=== PATIENT | female | born 1995 | race Caucasian/White ===

== ENCOUNTER 2017-04-28 20:04 | Emergency (ER) | payer BC, OTHER ==
[2017-04-28 20:33] LABS: #Basophils 0.1 thou/uL (0.0-0.2); #Eosinphils 0.2 thou/uL (0.0-0.7); #Lymphocytes 1.9 thou/uL (1.20-3.40); #Monocytes 0.5 thou/uL (0.11-0.59); #Neutrophils 4.3 thou/uL (1.40-6.50); %Basophils 0.9 % (0.0-1.0); %Eosinophils 3.2 % (0.0-10.0); %Lymphocytes 27.3 % (28.0-48.0); %Monocytes 6.9 % (0.0-4.0); Hematocrit 38.4 % (36.0-47.0); Mean Platelet Volume 10.3 fL (7.4-10.4); Red Blood Cell (RBC) Count 4.25 mill/uL (4.00-5.20)
[2017-04-28 20:46] LABS: Anion Gap 14 mmol/L (10-20); BUN (Urea Nitrogen) 7 mg/dL (7.0-18.7); Calc. Creatinine Clearance 0 mL/min (70-130); Calcium 9.4 mg/dL (7.8-10.44); Carbon Dioxide 24 mmol/L (22-29); Chloride 106 mmol/L (98-107); Estimated GFR-MDRD Greater than 90
[2017-04-28 20:51] LABS: Bilirubin Negative (Negative); Blood, Urine Large (Negative); Glucose, Urine (Dipstick) Negative (Negative); Ketone, Urine Negative (Negative); Nitrite Negative (Negative); Protein, Urine (Dipstick) Negative (Neg-Trace); Urobilinogen 0.2 mg/dL (0.2-1.0)
[2017-04-28 20:52] LABS: RBC/HPF 21-50 HPF (0-3); WBC/HPF None Seen HPF (0-3)
[2017-04-28 20:53] LABS: Bacteria/HPF 1+ HPF (None Seen)
[2017-04-28] MEDS ORDERED: HYDROcodone/Acetaminophen 5/325 mg Tablet ONE (21:38)
== END 2017-04-28 21:40 | disposition home or self-care (01) ==
LOC: SCSER 20:04
DX: N94.6 Dysmenorrhea, unspecified (principal); E66.9 Obesity, unspecified; Z79.899 Other long term (current) drug therapy
CPT/HCPCS: 80048; 81003; 81015; 84703; 85025; 99284

== ENCOUNTER 2017-09-10 21:00 | Emergency (ER) | payer BC, OTHER ==
[2017-09-10 21:25] LABS: Bilirubin Negative (Negative); Blood, Urine Negative (Negative); Clarity Clear (Clear); Glucose, Urine (Dipstick) Negative (Negative); Leukocyte Negative (Negative); Nitrite Negative (Negative); Pregnancy Test - Urine (BHCG) Negative (Negative); Protein, Urine (Dipstick) Negative (Neg-Trace); Urobilinogen 0.2 mg/dL (0.2-1.0); pH, Urine 6.5 (5.0-9.0)
[2017-09-10 21:26] LABS: Pregu Control Background? CLEAR/WHITE (CLR/WHITE); Pregu Control Bar Appear? YES (CONTROL BAR)
== END 2017-09-10 21:43 | disposition left against medical advice (07) ==
LOC: ERS 21:00
DX: Z53.21 Procedure and treatment not carried out due to patient leaving prior to being seen by health care provider (principal)
CPT/HCPCS: 81003; 81025

== ENCOUNTER 2018-03-19 23:11 | Day surgery (SDC) | payer OTHER ==
[2018-03-19 23:39] VITALS: BP 128/79; TEMP 98.7; BMI 41.0
[2018-03-20] MEDS ORDERED: Morphine 10 MG/ML VIAL ONE (00:17)
[2018-03-20] MEDS ORDERED: diphenhydrAMINE 50 MG/ML VIAL IM SCH (00:30)
[2018-03-20] MEDS ORDERED: Morphine 10 MG/ML VIAL IM SCH (00:30)
--- NOTE | 2018-03-20 08:42 | PRG ---
DATE OF ENCOUNTER: 03/19/2018 CHIEF COMPLAINT: Back pain. PRIMARY OB: Out of town. HISTORY OF PRESENT ILLNESS: The patient is a 22-year-old G1, P0 female with an intrauterine pregnanc y at 25 weeks and 3 days who is presenting to Labor and Delivery with a 2-day history of right lower back pain. The patient reports that this pain is worse with activity and movement, with getting out of bed, it is located in her lower right back. The patient denies fever, fall, headache, chest pain, shortness of breath. She denies nausea, vomiting, diarrhea, constipation. She denies any rashes. She denies vaginal bleeding, leakage of fluid, urinary urgency or frequency. The patient reports dede t she is moving back to the area and is planning on establishing care with Dr. Michael Felix. PAST MEDICAL HISTORY: Negative. PAST SURGICAL HISTORY: Negative. ALLERGIES: PENICILLIN. MEDICATIONS: None. SOCIAL HISTORY: Again, recently moved in the last couple of weeks back to the surrounding area, spec ifically [place]. OB LAB: Unavailable at time of dictation. REVIEW OF SYSTEMS: Per HPI. PHYSICAL EXAMINATION: VITAL SIGNS: Blood pressure 128/79, heart rate of 106, temperature 98.7. GENERAL: She appears to be in no acute distress. She is alert and oriented, cooperative and pleasan t to interact with. HEENT: Head is normocephalic, atraumatic. LUNGS: Clear to auscultation bilaterally. HEART: Regular rate and rhythm. ABDOMEN: Soft. She does have some mild tenderness to deviation of the uterus in her right lower pel melanie region. The patient has no costovertebral angle tenderness. EXTREMITIES: Nontender, nonedematous. GENITOURINARY: Has been deferred. She does have some point tenderness in her right SI joint and upp er gluteal region. heart tracing demonstrates a fetus in the 140s with moderate long-term variability. Tocometer is quiet. No evidence of contractions. ASSESSMENT AND PLAN: The patient is a 22-year-old G1, P0 female with an intrauterine at 25 weeks who is returning to the area with right lower back pain consistent with musculoskeletal pains and some ligamentous pains of . The patient has no evidence of labor or any other concernin g signs or symptoms. The patient has been given a series of stretches that I have helped her through in an effort to give her some longterm benefit. Prior to discharge she was given 10 mg of IM morph ine and 50 mg of IM Benadryl in an effort to give her help her get some rest tonight and to manage he r pain acutely. The patient has been discharged to home. She has been given a prescription of Tylen ol 3 take 1-2 tablets p.o. p.r.n. for pain, #15. The patient has a follow up expected with Dr. Felix once she gets records transferred from her prior OB. Fetus is reassuring for gestational age.
== END 2018-03-20 01:20 | disposition home or self-care (01) ==
LOC: L&D/OP 23:11
PROVIDERS: ATTEND Obstetrics & Gynecology
DX: O99.89 Other specified diseases and conditions complicating pregnancy, childbirth and the puerperium (principal); M54.5 Low back pain; Z3A.25 25 weeks gestation of pregnancy; Z79.899 Other long term (current) drug therapy; Z88.0 Allergy status to penicillin
CPT/HCPCS: 96372; 99282; J1200; J2270

== ENCOUNTER 2018-06-19 14:58 | Inpatient (IN) | payer OTHER ==
[~2018-06-19 14:58] MED LIST: Bupivacaine/Epinephrine 0.25% 30 ML VIAL ONE
[2018-06-19 15:31] VITALS: BMI 43.4
[2018-06-19] MEDS ORDERED: Lactated Ringer's 1,000 ML IV SCH (15:45)
--- NOTE | 2018-06-19 16:11 | PDOC.LDHP ---
Labor and Delivery H&P HPI: Pt is a 23 yof at 38.3 per LMP c/w 11w sono presenting for dizziness. She stood up today and became dizzy, then recorded her BP which was 146/96. She sat back down, rested, and again stood up and dropped to her hands and knees, w/ o hitting her abdomen. She rechecked BP and was reported elevated at 145/95. She then called L&D and was told to come in. She gives a history of FORBES that has continued through and worsened in the past 2 weeks, but not reported as severe. Also admits to mild nausea, more LE swelling, and a brief episode of RUQ pain with inspiration that resolved within a few minutes. She denies LOF, VB , ctx. Pos FM throughout entire day. States she has been drinking a normal amount of water daily. She started her care with Dr Felix, moved to [place] , and then moved back 3w ago and sees Dr Ramsey. Denies any complications during her . Of note, she endorses normal Glucola at 28w and measured at 40w yesterday in clinic. Past Medical History: One spontaneous AB at 5w in 2016 Previous surgical history: none Allergies/Adverse Reactions: Allergies Allergy/AdvReac Type Severity Reaction Status Date / Time Penicillins Allergy Mild Verified 03/19/18 23:32 Social history: none - Physical Exam Abnormal vital signs: BP 143/92 General: NAD Heart: other Lungs: CTAB Abdomen: NTTP Extremeties: trace edema FHT: category 1 - OB Labs Blood type: O RH: positive Antibody Screen: negative HIV: negative RPR: negative HEPSAg: negative 1 hour GCT: unknown GBS: unknown Urine drug screen: not done Rubella: immune Additional Labs: Quad negative - Plan -: 23 yof at 38.3 per LMP c/w 11w sono presenting for dizziness. 1. sIUP: Reactive NST, without any signs of labor. Will order BPP and check BASIM. 2. Gestational HTN: Pending full pre-e workup, but has had elevated pressures > 140/90 today and once recorded in clinic chart 3w ago. Will monitor BPs for several hours and induce if indicated. Otherwise, scheduled for induction 06/24. 3. Recurrent UTIs in : will order UA and treat as needed. 4. Elevated BMI at 43.4: 272 pre-preg weight and now 298. +26lbs Discussed case with Dr Scott Addendum - Attending - Attending Attestation Date/Time: 06/19/182223 I personally evaluated the patient and discussed the management with Dr. Bolden and team. I agree with and repeated the History, Examination, Assessment and Plan documented above with any addition or exceptions noted below. In light of oligo by BASIM criteria and suspected gHTN will keep patient for induction. Discuss r/b/a/i and plan for cervical ripening.
[2018-06-19 16:23] LABS: Hemoglobin 12.4 g/dL (12.0-16.0); Mean Corpuscular HGB CONC 33.2 g/dL (32.0-36.0); Mean Corpuscular Hemoglobin 30.1 pg (27.0-31.0); Mean Corpuscular Volume 90.5 fL (78.0-98.0); Mean Platelet Volume 10.2 fL (7.4-10.4); Platelet Count 241 thou/uL (130-400); RBC Distribution Width 12.6 % (11.5-14.5); Red Blood Cell (RBC) Count 4.14 mill/uL (4.20-5.40); White Blood Cell (WBC) Count 9.6 thou/uL (4.8-10.8)
[2018-06-19 16:42] LABS: ALT (SGPT) 7 U/L (8-55); AST (SGOT) 11 U/L (5-34); Albumin 3.7 g/dL (3.5-5.0); Alkaline Phosphatase 149 U/L (40-150); Anion Gap 13 mmol/L (10-20); BUN (Urea Nitrogen) 7 mg/dL (7.0-18.7); Bilirubin, Total 0.2 mg/dL (0.2-1.2); Calc. Creatinine Clearance 238 mL/min (70-130); Calcium 9.5 mg/dL (7.8-10.44); Carbon Dioxide 24 mmol/L (22-29); Chloride 107 mmol/L (98-107); Estimated GFR-MDRD Greater than 90; Globulin 3.2 g/dL (2.4-3.5); Glucose 85 mg/dL (70-105); Potassium 4.2 mmol/L (3.5-5.1); Protein, Total 6.9 g/dL (6.0-8.3); Sodium 140 mmol/L (136-145)
[2018-06-19 16:43] LABS: Band 3 % (5-11); Lymphocytes 18 % (21-51); MDiff Complete? YES; Monocytes 1 % (0-10); Neutrophil 78 % (42-75); Platelet Morphology Comment Appears Adequate; RBC Morphology Normal
[2018-06-19 16:53] LABS: Bilirubin Negative (Negative); Blood, Urine Negative (Negative); Clarity CLOUDY (Clear); Glucose, Urine (Dipstick) Negative (Negative); Leukocyte Small (Negative); Nitrite Negative (Negative); Protein, Urine (Dipstick) Negative (Neg-Trace); Specific Gravity, Urine 1.016 (1.002-1.036); Urobilinogen 0.2 mg/dL (0.2-1.0)
[2018-06-19 16:56] LABS: Bacteria/HPF 3+ HPF (None Seen); Hyaline Casts/LPF 0-3 HYALINE CAST LPF (0-3 Hyaline); RBC/HPF 0-3 HPF (0-3)
[2018-06-19 16:57] LABS: Urine Culture Reflex No No
[2018-06-19 18:11] LABS: Bilirubin Negative (Negative); Blood, Urine Negative (Negative); Clarity CLEAR (Clear); Glucose, Urine (Dipstick) Negative (Negative); Leukocyte Small (Negative); Nitrite Negative (Negative); Protein, Urine (Dipstick) Negative (Neg-Trace); Specific Gravity, Urine 1.018 (1.002-1.036); Urobilinogen 0.2 mg/dL (0.2-1.0); pH, Urine 6.5 (5.0-9.0)
[2018-06-19 18:13] LABS: RBC/HPF 0-3 HPF (0-3)
[2018-06-19 18:14] LABS: Pathc Cast-AUWi Flag 2.76 (0-2.49)
[2018-06-19 18:29] LABS: Bacteria/HPF 2+ HPF (None Seen); Hyaline Casts/LPF 0-3 HYALINE CAST LPF (0-3 Hyaline); Other Casts/LPF None Seen LPF (0-3 Hyaline)
--- NOTE | 2018-06-19 19:29 | ULT ---
OBSTETRIC SONOGRAM LIMITED SONOGRAPHIC BIOPHYSICAL PROFILE EXAM 06/19/18 HISTORY: Third trimester gestation. FINDINGS: Single intrauterine gestation in cephalic presentation. Four chamber heart shows motion at 144 beats per minute. Amniotic fluid is significantly decreased. Amniotic fluid index 3.8. Good tone and breathing movements and gross movements were demonstrated. IMPRESSION: Sonographic biophysical profile score 6/8. Marked oligohydramnios. Amniotic fluid index 3.8. POS: [facility]
[2018-06-19] MEDS ORDERED: Acetaminophen 500 MG TAB PO PRN (20:11)
[2018-06-19] MEDS ORDERED: Ibuprofen 800 MG TAB PO PRN (20:11)
[2018-06-19] MEDS ORDERED: Lidocaine 1% (PF) 30 ML VIAL SC PRN (20:11)
[2018-06-19] MEDS ORDERED: Promethazine HCl 25 MG/ML VIAL IM PRN (20:11)
[2018-06-19] MEDS ORDERED: Ondansetron PF 4 MG/2 ML Vial IVP PRN (20:11)
[2018-06-19] MEDS ORDERED: Docusate 100 MG CAP PO PRN (20:11)
[2018-06-19] MEDS ORDERED: NS / Oxytocin 40 units/1000ml 1,000 ML IV PRN (20:11)
[2018-06-19] MEDS ORDERED: Butorphanol Tartrate 1 MG/ML VIAL SLOW IVP PRN (20:11)
[2018-06-19] MEDS ORDERED: Misoprostol 100 MCG TAB VAG SCH (20:30)
[2018-06-19] MEDS: Lactated Ringer's 1,000 ML IV SCH (20:30)
[2018-06-19] MEDS: Misoprostol 100 MCG TAB VAG SCH (22:09)
[2018-06-19 22:16] LABS: Hemoglobin 11.3 g/dL (12.0-16.0); Mean Corpuscular HGB CONC 33.6 g/dL (32.0-36.0); Mean Corpuscular Hemoglobin 30.1 pg (27.0-31.0); Mean Corpuscular Volume 89.7 fL (78.0-98.0); Platelet Count 221 thou/uL (130-400); RBC Distribution Width 12.5 % (11.5-14.5); Red Blood Cell (RBC) Count 3.74 mill/uL (4.20-5.40); White Blood Cell (WBC) Count 10.7 thou/uL (4.8-10.8)
--- NOTE | 2018-06-19 22:51 | PDOC.LDPN ---
Labor & Delivery Progress Note - Subjective Subjective: comfortable - Objective Vital signs reviewed and normal: yes General: NAD, resting Uterine fundus: non tender SVE: 20:00 by Josephine Dilation: 2 Effacement: 50% Station: -3 FHT: category 1, variability present [place] contractions every: irregular - Assessment (1) Term Code(s): Z34.80 - ENCOUNTER FOR SUPRVSN OF NORMAL , UNSP TRIMESTER Current Visit: Yes Status: Acute (2) Elevated BP without diagnosis of hypertension Code(s): R03.0 - ELEVATED BLOOD-PRESSURE READING, W/O DIAGNOSIS OF HTN Current Visit: Yes Status: Acute (3) Oligohydramnios Code(s): O41.00X0 - OLIGOHYDRAMNIOS, UNSP TRIMESTER, NOT APPLICABLE OR UNSP Current Visit: Yes Status: Acute (4) Recurrent UTI Code(s): N39.0 - URINARY TRACT INFECTION, SITE NOT SPECIFIED Current Visit: Yes Status: Acute (5) Obesity affecting Code(s): O99.210 - OBESITY COMPLICATING , UNSPECIFIED TRIMESTER Current Visit: Yes Status: Acute -: 23 year old at 38.3 wks 1. sIUP - at 38.3 wks - 2/40/-3 at 20:00 - cat 1 strip 2. Oligohydramnios - <5 cm (3.8 cm) - Plan for induction of labor for marked oligohydramnios - cytotec induction due to unfavorable cervix 3. Elevated BP without diagnosis of HTN - BP >140/90 on admission - suspect gHTN; however, BP 4 hours apart wnl - continue to monitor - pre-e workup negative 4. History of recurrent UTI - pt not on ppx therapy - UA collected x2 today and has small leukocyte esterase and 2-3+ bacteria. Will treat accordingly 5. Elevated BMI: 43.4 - 272 --> 298 Ibs; 26 Ib weight gain Dispo: d/t oligohydramnios and suspected gHTN, will admit to L&D for induction. Will plan for cytotec. Addendum - Attending - Attending Attestation Date/Time: 06/20/18 1040 I personally evaluated the patient and discussed the management with Dr. Lacy and team on 06/19. I agree with the History, Examination, Assessment and Plan documented above with any addition or exceptions noted below.
[2018-06-19 22:54] LABS: Syphilis Antibody Nonreactive (Nonreactive); Syphilis Antibody Index 0.03 S/CO (<1.00 Non-Reactive)
--- NOTE | 2018-06-19 23:11 | PDOC.EVN ---
Event Note - Event Note Event Note: 06/19/2018 at 23:10 Confirmed GBS status with patient; GBS negative. Will not need to initiate antibiotics for GBS prophylaxis. Leesa Lacy, DO PGY-2
[2018-06-19 23:14] LABS: HBSAg Index 0.21 S/CO (0-0.99); Hep B Surf Ag Non-Reactive S/CO (NonReactive)
[2018-06-20] MEDS: Misoprostol 100 MCG TAB VAG SCH ×6 (01:48→18:31)
[2018-06-20] MEDS: Lactated Ringer's 1,000 ML IV SCH ×3 (01:48→15:42)
--- NOTE | 2018-06-20 03:12 | PDOC.LDPN ---
Labor & Delivery Progress Note - Subjective Subjective: comfortable - Objective Vital signs reviewed and normal: yes General: NAD, resting Uterine fundus: non tender SVE: 2:00 by Bambi Dilation: 2 Effacement: 25% Station: -3 FHT: category 1, variability present [place] contractions every: Irregular - Assessment (1) Term Code(s): Z34.80 - ENCOUNTER FOR SUPRVSN OF NORMAL , UNSP TRIMESTER Current Visit: Yes Status: Acute (2) Elevated BP without diagnosis of hypertension Code(s): R03.0 - ELEVATED BLOOD-PRESSURE READING, W/O DIAGNOSIS OF HTN Current Visit: Yes Status: Acute (3) Oligohydramnios Code(s): O41.00X0 - OLIGOHYDRAMNIOS, UNSP TRIMESTER, NOT APPLICABLE OR UNSP Current Visit: Yes Status: Acute (4) Recurrent UTI Code(s): N39.0 - URINARY TRACT INFECTION, SITE NOT SPECIFIED Current Visit: Yes Status: Acute (5) Obesity affecting Code(s): O99.210 - OBESITY COMPLICATING , UNSPECIFIED TRIMESTER Current Visit: Yes Status: Acute Plan: continue plan of care -: 23 year old at 38.3 wks 1. sIUP - at 38.3 wks - 07/20/-3 at 2:00; patient unchanged since 22:00 - cat 1 strip - Consider balloon if patient not making any cervical change with cytotec 2. Oligohydramnios - <5 cm (3.8 cm) - Plan for induction of labor for marked oligohydramnios - cytotec induction due to unfavorable cervix; consider balloon if patient not making change with cytotec 3. Elevated BP without diagnosis of HTN - BP >140/90 on admission - suspect gHTN; however, BP 4 hours apart wnl. No pressures >140/90 since admission - continue to monitor - pre-e workup negative 4. History of recurrent UTI - pt not on ppx therapy - UA collected x2 today and has small leukocyte esterase and 2-3+ bacteria. Will treat accordingly. 5. Elevated BMI: 43.4 - 272 --> 298 Ibs; 26 Ib weight gain Dispo: Continue current plan of care. Consider balloon if no cervical change with cyotec. Addendum - Attending - Attending Attestation Date/Time: 06/20/18 1041 I personally evaluated the patient and discussed the management with Dr. Lacy. I agree with the History, Examination, Assessment and Plan documented above with any addition or exceptions noted below.
--- NOTE | 2018-06-20 05:41 | PDOC.LDPN ---
Labor & Delivery Progress Note - Subjective Subjective: comfortable, painful contractions - Objective Vital signs reviewed and normal: yes General: NAD, resting, breathing through contractions Uterine fundus: non tender SVE: 5:30 AM Dilation: 3 Effacement: 50% Station: -3 FHT: category 1, variability present [place] contractions every: q2-3 min - Assessment (1) Term Code(s): Z34.80 - ENCOUNTER FOR SUPRVSN OF NORMAL , UNSP TRIMESTER Current Visit: Yes Status: Acute (2) Elevated BP without diagnosis of hypertension Code(s): R03.0 - ELEVATED BLOOD-PRESSURE READING, W/O DIAGNOSIS OF HTN Current Visit: Yes Status: Acute (3) Oligohydramnios Code(s): O41.00X0 - OLIGOHYDRAMNIOS, UNSP TRIMESTER, NOT APPLICABLE OR UNSP Current Visit: Yes Status: Acute (4) Recurrent UTI Code(s): N39.0 - URINARY TRACT INFECTION, SITE NOT SPECIFIED Current Visit: Yes Status: Acute (5) Obesity affecting Code(s): O99.210 - OBESITY COMPLICATING , UNSPECIFIED TRIMESTER Current Visit: Yes Status: Acute Plan: continue plan of care -: Patient made change at this last check. 50/-3, mid position. Trevor too frequently for cytotec at this time. Will continue to monitor, and if there is a window for cytotec will place. Otherwise, may consider FSE and IUPC at next check as it has been difficult to pick up man contractions and keep baby on monitor. Addendum - Attending - Attending Attestation Date/Time: 06/20/18 5510 I personally evaluated the patient and discussed the management with Dr. Lacy. I agree with the History, Examination, Assessment and Plan documented above with any addition or exceptions noted below.
[2018-06-20] MEDS: Nitrofurantoin Monohyd/M-Cryst 100 MG CAP PO SCH ×2 (09:24)
[2018-06-20] MEDS ORDERED: Nitrofurantoin Monohyd/M-Cryst 100 MG CAP PO SCH (09:27)
[2018-06-20] MEDS ORDERED: NS w/ Oxytocin 10 units 500 ML ONE (10:50)
[2018-06-20] MEDS ORDERED: NS w/ Oxytocin 10 units 500 ML IV SCH (11:00)
--- NOTE | 2018-06-20 11:06 | PDOC.LDPN ---
Labor & Delivery Progress Note - Subjective Subjective: comfortable - Objective Vital signs reviewed and normal: yes General: NAD, resting Uterine fundus: non tender SVE: @ [address] Jordan Dilation: 50/-3 FHT: category 1 (baseline 125/mod linden/no decels/+accels), variability present [place] contractions every: 3-5 minutes Procedures: FSE placed FSE placed: yes - Assessment (1) Oligohydramnios Code(s): O41.00X0 - OLIGOHYDRAMNIOS, UNSP TRIMESTER, NOT APPLICABLE OR UNSP Current Visit: Yes Status: Acute Qualifiers: Fetus number: single or unspecified fetus Trimester: third trimester Qualified Code(s): O41.03X0 - Oligohydramnios, third trimester, not applicable or unspecified (2) Elevated BP without diagnosis of hypertension Code(s): R03.0 - ELEVATED BLOOD-PRESSURE READING, W/O DIAGNOSIS OF HTN Current Visit: Yes Status: Acute (3) Obesity affecting Code(s): O99.210 - OBESITY COMPLICATING , UNSPECIFIED TRIMESTER Current Visit: Yes Status: Acute Qualifiers: Trimester: third trimester Qualified Code(s): O99.213 - Obesity complicating , third trimester (4) Term Code(s): Z34.80 - ENCOUNTER FOR SUPRVSN OF NORMAL , UNSP TRIMESTER Current Visit: Yes Status: Acute Plan: pitocin for augmentation -: SVE unchanged from prior. FSE placed for slow rupture and better monitoring Will start pt on pitocin at this time and recheck cervix in 2 hours. If able, will place IUPC at that time. Addendum - Attending - Attending Attestation Date/Time: 06/20/18 8035 I personally evaluated the patient and discussed the management with Dr. Jordan. I agree with the History, Examination, Assessment and Plan documented above with any addition or exceptions noted below.
[2018-06-20] MEDS ORDERED: Fentanyl 4 mcg/Bup 0.1% Cadd 100 ML ONE (11:24)
[2018-06-20] MEDS ORDERED: Lidocaine 1.5% w/Epi 1:200K 30 ML VIAL (Epid Use) ONE (12:02)
[2018-06-20] MEDS ORDERED: diphenhydrAMINE 50 MG/ML VIAL IVP PRN (12:47)
[2018-06-20] MEDS ORDERED: ePHEDrine/0.9% NaCl/PF SYRINGE 50 mg/10 ml SLOW IVP PRN (12:47)
[2018-06-20] MEDS ORDERED: Promethazine HCl 25 MG/ML VIAL IM PRN ×2 (12:47→18:21)
[2018-06-20] MEDS ORDERED: Ondansetron PF 4 MG/2 ML Vial IVP PRN ×2 (12:47→18:21)
[2018-06-20] MEDS ORDERED: Acetaminophen 325 MG TAB PO PRN (12:47)
[2018-06-20] MEDS ORDERED: Lactated Ringer's 500 ML IV PRN (12:47)
[2018-06-20] MEDS ORDERED: Naloxone HCl 0.4 mg/ml Vial IVP PRN ×2 (12:47)
[2018-06-20] MEDS ORDERED: Hydrocerin (Eucerin) Cream 120 gm Jar TOP PRN (12:47)
[2018-06-20] MEDS ORDERED: Fentanyl 4 mcg/Bupivacaine 0.1% Cassette 100 ML EPIDURAL SCH (13:00)
--- NOTE | 2018-06-20 13:10 | PDOC.LDPN ---
Labor & Delivery Progress Note - Subjective Subjective: painful contractions - Objective Vital signs reviewed and normal: yes General: breathing through contractions Uterine fundus: palpable contractions SVE: @ [address] Jordan /-2 FHT: category 1, variability present [place] contractions every: 2-4 minutes - Assessment (1) Oligohydramnios Code(s): O41.00X0 - OLIGOHYDRAMNIOS, UNSP TRIMESTER, NOT APPLICABLE OR UNSP Current Visit: Yes Status: Acute Qualifiers: Fetus number: single or unspecified fetus Trimester: third trimester Qualified Code(s): O41.03X0 - Oligohydramnios, third trimester, not applicable or unspecified (2) Elevated BP without diagnosis of hypertension Code(s): R03.0 - ELEVATED BLOOD-PRESSURE READING, W/O DIAGNOSIS OF HTN Current Visit: Yes Status: Acute (3) Obesity affecting Code(s): O99.210 - OBESITY COMPLICATING , UNSPECIFIED TRIMESTER Current Visit: Yes Status: Acute Qualifiers: Trimester: third trimester Qualified Code(s): O99.213 - Obesity complicating , third trimester (4) Term Code(s): Z34.80 - ENCOUNTER FOR SUPRVSN OF NORMAL , UNSP TRIMESTER Current Visit: Yes Status: Acute Plan: continue plan of care -: -Epidural in place -SVE changed to 2. Cont pitocin. If no change at next check, will insert IUPC to monitor strength of ctx. Addendum - Attending - Attending Attestation Date/Time: 06/20/18 1430 I personally evaluated the patient and discussed the management with Dr. Jordan. I agree with the History, Examination, Assessment and Plan documented above with any addition or exceptions noted below. Pt most recently cat 1 with + accels and earlies. I was notified that epidural was a wet tap and patient developed headache subsequently. Nurses also were suspicious of arrhythmia during time in room. During exchange of FSE by RN one decel to the 60's that recovered. I have discussed the case with Dr. Montiel, who is aware and graciously covering for the next ~2 hours and will notify me if any deterioration/problem.
[2018-06-20] MEDS ORDERED: Acetaminophen 500 MG TAB PO SCH (13:15)
--- NOTE | 2018-06-20 17:51 | PDOC.OPDEL ---
OB Operative/Delivery Note Delivery Dr/Surgeon: Dr. Jordan and Dr. Ramsey with Dr. Scott attending Pre-Delivery Diagnosis: medically indicated induction (for oligohydramnios) Procedure/Post Delivery Dx: operative vaginal delivery (vacuum-assisted) Weeks gestation: 38 (38w4d) Anesthesia: epidural - Findings A Sex: male - 1 min: 8 - 5 min: 9 - Additional Findings/Plan Placenta delivered: spontaneous Repaired Obstetrical Laceration: 2nd degree (repaired with 3-0 chromic and periurethral that was hemostatic) Compilations/Other Findings: This is a 23 year old female @ 38.4 wks who delivered a viable M at 1648 on 06/20/18. During the second stage of labor the fetus developed bradycardia, so the decision was made to proceed with a vacuum assisted delivery. The head was at the +3 station and the mushroom cup was applied to the flexion point. There was one pop-off during the first pull and the male infant was delivered during the second contraction over an intact perineum in the SHAMIKA position. Anterior Shoulder and then remainder of the body delivered. The was vigorous. No nuchal cord. The head was held down and mouth and nares were bulb suctioned. Cord clamped and cut and cord blood collected. Placenta delivered intact with a 3 vessel cord noted. Fundal massage was performed and the fundus was firm. The cervix and vagina were inspected and found to have a 2nd degree laceration noted that was repaired with 3-0 chromic in the usual fashion with good approximation and hemostasis. A periurethral laceration was noted that was hemostatic, and this was not repaired. went to nursery in good condition for routine care. Apgars were 8&9 at 1 & 5 minutes, respectively. Patient tolerated delivery well and went to after routine recovery/care. QBL: 35mL Post delivery plan: routine recovery Addendum - Attending - Attending Attestation Date/Time: 06/21/18 9957 I personally evaluated the patient and discussed the management with Dr. Scott. I agree with and repeated the History, Examination, Assessment and Plan documented above with any addition or exceptions noted below. I was present during the entire delivery. Indication: Category 2 FHTs (bradycardia) Popoffs: 1 Time of application: ~1-2 minutes Repaired in the usual fashion
[2018-06-20] MEDS ORDERED: Milk Of Magnesia 30 ML UDCUP PO PRN (18:21)
[2018-06-20] MEDS ORDERED: NS / Oxytocin 40 units/1000ml 1,000 ML IV SCH (18:21)
[2018-06-20] MEDS ORDERED: Bisacodyl 10 MG SUPP PR PRN (18:21)
[2018-06-20] MEDS ORDERED: diphenhydrAMINE 25 MG CAP PO PRN (18:21)
[2018-06-20] MEDS ORDERED: Lanolin Ointment 7 GM TUBE TOP PRN (18:21)
[2018-06-20] MEDS: Cephalexin 250 MG CAP PO SCH (23:20)
[2018-06-20] MEDS: Docusate Calcium (SURFAK) 240 MG CAP PO SCH (23:21)
[2018-06-20] MEDS: Ibuprofen 800 MG TAB PO SCH (23:24)
--- NOTE | 2018-06-21 06:10 | PDOC.PP ---
Post Progress Note Post Day #: 1 Subjective: Mother states that she is doing well. She is having some back pain this AM. Patient is waiting to get her epidural out. She states she was able to get some rest when her baby went to the Nursery. She was very appreciative of the staff. She denies chest pain, sob, n/v/d, fever, or lightheadedness. No other complaints. PO intake tolerated: yes Flatus: yes Ambulation: yes Vital Signs (12 hours) Pulse Ox 06/21/18 00:00 100 Weight Weight 133.356 kg - Physical Examination General: NAD Cardiovascular: no m/r/g, RRR Respiratory: clear to auscultation bilaterally, non-labored breathing Abdominal: + bowel sounds, lochia, no distention, appropriately TTP Extremities: negative homans (B) Skin: no rash Neurological: no gross focal deficits Psychiatric: A&Ox3 Result Diagrams: 06/21/18 07:32 06/19/18 16:08 Additional Labs: Post Labs Blood Type O POSITIVE 06/19/18 22:04 Hep Bs Antigen Non-Reactive S/CO (NonReactive) 06/19/18 22:04 (1) Term delivered Code(s): O80 - ENCOUNTER FOR FULL-TERM UNCOMPLICATED DELIVERY Status: Acute (2) Elevated BP without diagnosis of hypertension Code(s): R03.0 - ELEVATED BLOOD-PRESSURE READING, W/O DIAGNOSIS OF HTN Status : Acute - Assessment/Plan 1. Term delivered - Continue routine supportive care - Breast feeding consultation pending at this time. - Repeat Hemagram pending at this time 2. Elevated BP without HTN - BP well controlled overnight with systolic 116s/60s - Continue to monitor Disposition: Stable, will continue routine plan of care and anticipate discharge tomorrow. Addendum - Attending - Attending Attestation Date/Time: 06/21/18 5358 I personally evaluated the patient and discussed the management with Dr. Ramsey and Yuan. I agree with and repeated the History, Examination, Assessment and Plan documented above with any addition or exceptions noted below. D/w anesthesia concerning epidural. Plan for d/c tomorrow.
[2018-06-21] MEDS: Ibuprofen 800 MG TAB PO SCH ×3 (06:27→21:25)
[2018-06-21 07:45] LABS: Hemoglobin 10.7 g/dL (12.0-16.0); Mean Corpuscular HGB CONC 32.5 g/dL (32.0-36.0); Mean Corpuscular Hemoglobin 29.5 pg (27.0-31.0); Mean Corpuscular Volume 90.8 fL (78.0-98.0); Mean Platelet Volume 9.9 fL (7.4-10.4); Platelet Count 220 thou/uL (130-400); RBC Distribution Width 12.4 % (11.5-14.5); Red Blood Cell (RBC) Count 3.64 mill/uL (4.20-5.40); White Blood Cell (WBC) Count 7.5 thou/uL (4.8-10.8)
[2018-06-21] MEDS ORDERED: Adacel (T-DAP) 0.5 ML SYRINGE IM ONE (09:00)
[2018-06-21] MEDS: Ferrous Sulfate 325 MG TAB PO SCH ×2 (09:16→16:57)
[2018-06-21] MEDS: Prenatal Vitamin 1 TAB PO SCH (09:17)
[2018-06-21] MEDS: Docusate Calcium (SURFAK) 240 MG CAP PO SCH ×2 (09:17→21:25)
[2018-06-21] MEDS: Cephalexin 250 MG CAP PO SCH ×2 (09:18→21:25)
[2018-06-21] MEDS ORDERED: Benzocaine/Menthol 20-0.5% 60 ML CAN TOP PRN (19:48)
[2018-06-21 20:09] VITALS: TEMP 98.1
[2018-06-22] MEDS: Ibuprofen 800 MG TAB PO SCH (05:10)
--- NOTE | 2018-06-22 07:29 | PDOC.PP ---
Post Progress Note Post Day #: 2 Subjective: Patient doing very well. She states she has had no problems. Since having the epidural removed she has not had the back pain. She states that she has not had n/v/d, fevers, chills, or cough. No other complaints. PO intake tolerated: yes Flatus: yes Ambulation: yes Vital Signs (12 hours) Temp Pulse Resp BP Pulse Ox 06/21/18 23:52 104 H 06/21/18 20:00 98.1 F 105 H 18 116/63 98 Weight Weight 133.356 kg - Physical Examination General: NAD Cardiovascular: no m/r/g, RRR Respiratory: clear to auscultation bilaterally, non-labored breathing Abdominal: + bowel sounds, lochia, no distention, appropriately TTP Fundus firm & at: Below umbilicus Extremities: negative homans (B) Skin: no rash Neurological: no gross focal deficits Psychiatric: A&Ox3, normal affect Result Diagrams: 06/21/18 07:32 06/19/18 16:08 Additional Labs: Post Labs Blood Type O POSITIVE 06/19/18 22:04 Hep Bs Antigen Non-Reactive S/CO (NonReactive) 06/19/18 22:04 (1) Term delivered Code(s): O80 - ENCOUNTER FOR FULL-TERM UNCOMPLICATED DELIVERY Status: Acute (2) Elevated BP without diagnosis of hypertension Code(s): R03.0 - ELEVATED BLOOD-PRESSURE READING, W/O DIAGNOSIS OF HTN Status : Acute - Assessment/Plan 1. Term delivered - Continue routine supportive care - consultation pending at this time. - Repeat H&H from 06/21 showed no acute signs of hemorrhage - Plan for discharge today. 2. Elevated BP without HTN - BP well controlled overnight with systolic 116s/60s - Continue to monitor - Recommend outpatient follow up. Disposition: Stable, plan for discharge today after consultation. Patient is given instructions for post follow up. Addendum - Attending - Attending Attestation Date/Time: 06/22/18 2100 I personally evaluated the patient and discussed the management with Dr. Ramsey I agree with the History, Examination, Assessment and Plan documented above with any addition or exceptions noted below. Meeting appropriate milestones. Epidural catheter removed yesterday. pt denies FORBES, vision changes or RUQ pain. BP normotensive. Stable for d/c today
[2018-06-22] MEDS: Ferrous Sulfate 325 MG TAB PO SCH (07:56)
[2018-06-22 08:22] VITALS: BP 132/70
[2018-06-22] MEDS: Prenatal Vitamin 1 TAB PO SCH (09:34)
[2018-06-22] MEDS: Docusate Calcium (SURFAK) 240 MG CAP PO SCH (09:34)
[2018-06-22] MEDS: Cephalexin 250 MG CAP PO SCH (09:34)
== END 2018-06-22 13:15 | disposition home or self-care (01) | DRG 806 ==
LOC: L&D/OP 14:58 → L&D 20:32 → 3SW 06-20 21:45
PROVIDERS: ADMIT Emergency Medicine; ATTEND Emergency Medicine
PROC: 10D07Z6 Extraction of Products of Conception, Vacuum, Via Natural or Artificial Opening (ICD-10-PCS; principal; 2018-06-20)
PROC: 0KQM0ZZ Repair Perineum Muscle, Open Approach (ICD-10-PCS; 2018-06-20)
PROC: 3E033VJ Introduction of Other Hormone into Peripheral Vein, Percutaneous Approach (ICD-10-PCS; 2018-06-20)
PROC: 10907ZC Drainage of Amniotic Fluid, Therapeutic from Products of Conception, Via Natural or Artificial Opening (ICD-10-PCS; 2018-06-20)
DX: O13.4 Gestational [pregnancy-induced] hypertension without significant proteinuria, complicating childbirth (principal); O41.03X0 Oligohydramnios, third trimester, not applicable or unspecified; Z37.0 Single live birth; Z68.41 Body mass index [BMI] 40.0-44.9, adult; Z3A.38 38 weeks gestation of pregnancy; Z87.440 Personal history of urinary (tract) infections; N96 Recurrent pregnancy loss; O70.1 Second degree perineal laceration during delivery; O99.210 Obesity complicating pregnancy, unspecified trimester; E66.9 Obesity, unspecified
CPT/HCPCS: 36415; 36416; 51702; 76819; 80053; 81001; 82570; 84156; 85007; 85027; 86780; 86850; 86900; 86901; 87086; 87340; 99285; J0595; J2001; J2405

== ENCOUNTER 2020-06-12 00:13 | Day surgery (SDC) | payer OTHER ==
[2020-06-12 00:57] VITALS: BMI 43.9
--- NOTE | 2020-06-12 01:22 | PDOC.FPROB ---
FMR OB H&P: HPI - History of Present Illness Chief Complaint: HTN Indentification: 25yo at 24.4wga History of Present Illness: This is a 25yo at 24.4wga presenting after recording a BP of 171/111 at home. At ~2300 on 06/11 she was giving her son some medication when she felt lightheaded, chills, and weak. She took her BP and found it to be 171/111. She drank a bottle of water, laid down, and rechecked it to find a BP of 150/99. She rechecked a few minutes later and it was 132/90. She has had similar episodes a few times in the past and most notably on 05/31/2020, at which point she was evaluated in the hospital and ultimately sent home. On that date and on 06/08/2020 in her PCP's clinic she was worked up for pre-eclampsia but had normal urine protein/cr. In her previous , she also struggled with HTN and was induced at 38wks because of that and low BASIM. She had a vacuum-assisted vaginal delivery with no complications. She was never diagnosed with pre-eclampsia or eclampsia and never given Mg sulfate. She has never had BP issues outside of . She has already been referred to [facility] but has not met with them yet. BP on arrival was 130/72, c/w subsequent check with her home BP cuff. She demonstrated good technique - sitting with feet flat, uncrossed, with arms by her side. She has a hx of migraines outside of , for which she takes butalbital. She was recently started on Mg sulfate to help with these. Earlier in the day she had a FORBES which responded a little to tylenol. She states this FORBES was less severe than the ones she normally gets. She denies dyspnea, CP, RUQ pain, changes in vision, significant edema. Primary Care Physician: [facility] - Drs. Pat Gaines / Samantha Ramirez FMR OB H&P: Current - Care : 5 Para: [id number] Gestational age: 24 Due date: 09/28/2020 Dating Criteria: 1T U/S Course/Complications: gHTN, migraines, morbid obesity (BMI >40) - OB Labs Blood type: O RH: positive Antibody Screen: negative HIV: negative RPR: negative HepBsAg: negative Gonorrhea: negative Chlamydia: negative 1 hour gtt: 2hr GTT neg H&H: FMR OB H&P: History - Past Medical History PMH: Migraines - OB History OB History: 3 spontaneous abortions 1 full-term, vacuum-assisted vaginal delivery. Induced d/t HTN. No pre- eclampsia/eclampsia. gHTN in previous . - BACTERIOLOGIST MEDICAL History BACTERIOLOGIST MEDICAL History: Chlamydia in 2015 s/p tx - Surgical History Sx History: D&C in 08/2019 post-miscarriage - Social History Social History: Denies TAD use during . Lives with and son. - Family History Family History: MGM - DM PGF - HTN FMR OB H&P: Medications - Current Home Medications: Medication Instructions Recorded Confirmed Type Vit,Calc76/Iron/Folic 1 tablet PO DAILY 03/19/18 06/19/18 History [Pnv 29-1 Tablet] Aspirin 81 mg PO 06/12/20 History Magnesium Oxide [Magnesium] 400 mg PO 06/12/20 History Allergies/Adverse Reactions: Allergies Allergy/AdvReac Type Severity Reaction Status Date / Time Penicillins Allergy Mild Verified 06/12/20 00:44 FMR OB H&P: ROS - Review of Systems General: reports: fever/chills, other (lightheadedness) Eyes: denies: vision changes, double vision, scotomas, floaters ENT: denies: nasal congestion, sore throat Cardiovascular: denies: chest pain, palpitation, edema Respiratory: denies: cough, congestion, shortness of breath Gastrointestinal: denies: abdominal pain, nausea, vomiting, diarrhea Genitourinary (Female): denies: dysuria, vaginal discharge, vaginal bleeding Musculoskeletal: denies: swelling Neurologic: reports: weakness, headache Integumentary: denies: itching, rash FMR OB H&P: Vital Signs - Maternal Vital signs: BP 130/72 - Heart Tones [place] contractions every: N/A FMR OB H&P: Physical Exam - Physical Exam General: NAD, awake, alert and oriented HEENT: normocephalic and atraumatic, EOMI, grossly normal vision, grossly normal hearing Neck: supple, FROM, trachea midline Chest: non-tender to palpation, no lesions Heart: RRR, normal S1/S2, no murmurs/rubs/gallops, no edema General: CTAB, no respiratory distress, good air movement Abdomen: soft, gravid, non-tender, bowel sound present Musculoskeletal: FROM in all four extremities Neurological: no focal deficit Skin: no rash Lymphatic: no unusual bruising or bleeding Psychiatric: intact recent and remote memory, good judgement and insight, normal mood and affect FMR OB H&P: A/P Disposition: This is a 25yo at 24.4wga who presented to the ED after a BP reading of 171/111 at home. gHTN - Neg pre-E labs on 05/31 and 06/08/2020 - Recurrent single SBP readings in the 170s - No other pre-E/HELLP sxs - Random urine protein/Cr ordered - Will monitor BP - If no repeat BPs >160/100 and nml urine ratio, will send home with return precautions - Has upcoming appt with [facility] in 2T - 24.4wga - Monitor FHT. On evaluation, baby not picking up on monitor well Migraines - FORBES less severe than normal - Continue home meds, as needed Obesity Discussion: Date/Time: 06/12/20 0122 This H&P was discussed with Dr. Vance Watson who agrees with the above document ation and plan.
[2020-06-12 03:18] LABS: Creatinine, Urine 192.47 mg/dL (47-110)
--- NOTE | 2020-06-12 03:32 | PDOC.BPN ---
- Brief Progress Note Encounter Date: 06/12/20 Encounter Time: 03:25 Urine protein/Cr ratio 0.07 One BP of 140/90 after we left the room and pt was having anxiety about worst- case scenario. All other BPs <140/90. As such, pt does not meet pre-eclampsia diagnostic criteria. Dispo: discharge home with return precautions. Encourage pt to f/u with PCP and MFM.
== END 2020-06-12 03:45 | disposition home or self-care (01) ==
LOC: L&D/OP 00:13
PROVIDERS: ATTEND Family Medicine
DX: O13.2 Gestational [pregnancy-induced] hypertension without significant proteinuria, second trimester (principal); O99.212 Obesity complicating pregnancy, second trimester; E66.01 Morbid (severe) obesity due to excess calories; O99.352 Diseases of the nervous system complicating pregnancy, second trimester; G43.909 Migraine, unspecified, not intractable, without status migrainosus; O09.292 Supervision of pregnancy with other poor reproductive or obstetric history, second trimester; Z3A.24 24 weeks gestation of pregnancy; Z79.82 Long term (current) use of aspirin; Z88.0 Allergy status to penicillin
CPT/HCPCS: 81003; 82570; 84156; 99283

== ENCOUNTER 2022-06-13 07:45 | Outpatient (CLI) | payer OTHER | END 2022-06-13 07:46 | disposition home or self-care (01) | LOC: TBSIIMAG 07:45 | PROVIDERS: ATTEND Neurological Surgery | DX: S22.060A Wedge compression fracture of T7-T8 vertebra, initial encounter for closed fracture (principal) | CPT/HCPCS: 72070 ==

== ENCOUNTER 2022-07-16 17:52 | Emergency (ER) | payer OTHER ==
[2022-07-16] MEDS ORDERED: Ondansetron PF 4 MG/2 ML Vial ONE (18:36)
[2022-07-16] MEDS ORDERED: diphenhydrAMINE 50 MG CAP ONE (18:37)
[2022-07-16] MEDS ORDERED: Ketorolac Tromethamine 30 MG/ML VIAL ONE (18:37)
[2022-07-16] MEDS ORDERED: Metoclopramide HCl 10 MG/2 ML VIAL ONE (18:37)
[2022-07-16] MEDS ORDERED: diphenhydrAMINE 50 MG/ML VIAL ONE (18:41)
== END 2022-07-16 19:03 | disposition home or self-care (01) ==
LOC: ERS 17:52
DX: G43.909 Migraine, unspecified, not intractable, without status migrainosus (principal); F17.290 Nicotine dependence, other tobacco product, uncomplicated
CPT/HCPCS: 96374; 96375; J1200; J1885; J2405; J2765

== ENCOUNTER 2022-09-01 04:49 | Emergency (ER) | payer OTHER ==
[2022-09-01 05:37] LABS: #Eosinphils 0.1 thou/uL (0.0-0.7); #Lymphocytes 1.7 thou/uL (1.20-3.40); #Monocytes 0.6 thou/uL (0.11-0.59); #Neutrophils 3.9 thou/uL (1.40-6.50); %Basophils 0.6 % (0.0-1.0); %Eosinophils 1.3 % (0.0-10.0); %Lymphocytes 26.5 % (21.0-51.0); %Monocytes 9.2 % (0.0-10.0); %Neutrophils 62.4 % (42.0-75.0); Hemoglobin 12.2 g/dL (12.0-16.0); Mean Corpuscular Hemoglobin 29.9 pg (27.0-31.0); Mean Corpuscular Volume 93.5 fl (78.0-98.0); Mean Platelet Volume 9.3 fL (7.4-10.4); Platelet Count 227 10x3/uL (130-400); RBC Distribution Width 12.8 % (11.5-14.5); Red Blood Cell (RBC) Count 4.08 mill/uL (4.20-5.40); White Blood Cell (WBC) Count 6.3 10x3/uL (4.8-10.8)
[2022-09-01 05:57] LABS: BHCG - Serum Negative (NEGATIVE); Pregs Control Background? CLEAR/WHITE (CLR/WHITE); Pregs Control Bar Appear? YES (CONTROL BAR)
[2022-09-01 06:03] LABS: Anion Gap 9 mmol/L (10-20); BUN (Urea Nitrogen) 10 mg/dL (7.0-18.7); Calc. Creatinine Clearance 0 mL/min (70-130); Calcium 9.4 mg/dL (7.8-10.44); Carbon Dioxide 27 mmol/L (22-29); Chloride 108 mmol/L (98-107); Estimated GFR 111; Glucose 95 mg/dL (70-105); Potassium 3.9 mmol/L (3.5-5.1); Sodium 140 mmol/L (136-145)
== END 2022-09-01 06:30 | disposition home or self-care (01) ==
LOC: ERS 04:49
DX: R55 Syncope and collapse (principal); E86.0 Dehydration; F41.9 Anxiety disorder, unspecified; F17.290 Nicotine dependence, other tobacco product, uncomplicated
CPT/HCPCS: 36415; 80048; 84703; 85025; 99284